=== PATIENT | male | born 1950 | race Caucasian/White ===

== ENCOUNTER 2017-08-21 09:26 | Day surgery (SDC) | payer MEDICARE, BC ==
[2017-08-20 16:31] LABS: HEMATOCRIT 48.9 % (42.0-54.0); HEMOGLOBIN 16.3 g/dL (13.5-17.5); MCH 29.7 pg (26.0-34.0); MCHC 33.3 g/dL (31.0-37.0); MCV 89.1 fL (80.0-100.0); MEAN PLATELET VOLUME 8.8 fL (7.4-10.4); RBC 5.49 10x6/uL (4.20-6.10); RDW 14.2 % (11.5-14.5); WBC 10.3 10x3/uL (4.8-10.8)
[~2017-08-21] VITALS: Ht 177.8 cm; Wt 119.5 kg
[2017-08-21] VITALS (9 sets, daily range): BP systolic 120–142; BP diastolic 69–88; Ht 177.8 cm; Wt 119.5 kg
--- NOTE | ~2017-08-21 | OP ---
PATIENT NAME: UNRULY LYNCH MEDICAL RECORD: [id number] :54 [facility]: SURGEON: OBDULIA KUHN MD DATE OF OPERATION: 08/21/2017 PREOPERATIVE DIAGNOSIS: Osteophyte formation and disk herniation at C4-C5 and C5-C6. SURGEON: Obdulia Kuhn MD PROCEDURE: Anterior cervical diskectomy and fusion at C4-C5 and C5-C6 with PEEK interbody cages at C4-C5 and C5-C6, separate anterior cervical plate and screws with colonial spacers and VIP anterior cervical plate from [facility] [employer]. DESCRIPTION OF TECHNIQUE: After induction of general endotracheal anesthesia, the patient was positioned supine on the operating table. Neck was prepped and draped in usual sterile fashion. Fluoroscopic x-ray and freer localized the C5 vertebral body. A transverse skin incision was carried out from the midline to the sternocleidomastoid muscle. The platysma was divided with Bovie cautery. Using blunt and sharp dissection with Metzenbaum scissors, I proceeded in the avascular plane medial to the carotid sheath. The longus colli muscles were elevated from bodies of C4, C5 and C6. A self-retaining retractor was placed deep to the longus colli muscles. Ducor distracting pins were placed in the bodies of C4, C5 and C6. Disk spaces were incised of C4-C5 and C5-C6. Disk material was removed with the pituitary rongeurs and curettes. Midas Roddy drill and microscope were used to remove osteophytes posteriorly. Cloward rongeurs were used to remove the posterior longitudinal ligament at each level posteriorly. The dura was decompressed well at C4-C5 and C5-C6 foramen as well as the central canal. The 8 mm PEEK interbody cages were placed in the disk space under distraction. Prior to this, I filled with Viaba bone stem cell allograft. A separate VIP anterior cervical plate and screws were used to span the C4-C5 and C5-C6 interspaces. Self-drilling screws were placed through the holes and plate. The locking cams tightened down with a torque screwdriver. Good position of the hardware was confirmed with fluoroscopic x-ray. Meticulous hemostasis was maintained throughout the wound. The wound was irrigated with copious amounts of Ancef irrigant solution. The platysma and subdermal layer closed with interrupted 3-0 Vicryl suture. The skin was reapproximated with Steri-Strips and benzoin. A sterile dressing was applied to the wound. The patient was awakened in good condition and taken to recovery. All counts were reported as correct. Estimated blood loss was minimal. TRANSINT:[id number] Voice Confirmation ID: [id number] DOCUMENT ID: [id number] OBDULIA KUHN MD at 1832 CC: [id number] DICTATION DATE: 09/08/17 1629 SALON PROFESSIONAL: 09/08/17 1713 [facility] 08/22/17 [id number] [place] [address]
[~2017-08-21 09:26] MED LIST: CELEXA20 MG PO; CYCLOBENZAPRINE5 MG PO; HYDROCO/APAP TAB 10-; MELOXICAM TAB 15M; OSTEO BI-FLEX1 EAC1 PO
[2017-08-22] VITALS (9 sets, daily range): BP systolic 105–132; BP diastolic 56–86
== END 2017-08-22 13:00 | disposition home or self-care (01) ==
LOC: D.OPS 09:26 → D.CVICU 09:26 → D.OPS 10:45 → D.PAN 10:45 → D.CVICU 17:55 → D.OPS 08-22 13:00
PROVIDERS: Anesthesiology
DX: M54.12 Radiculopathy, cervical region (principal); M53.80 Other specified dorsopathies, site unspecified; M77.9 Enthesopathy, unspecified; K21.9 Gastro-esophageal reflux disease without esophagitis; E66.9 Obesity, unspecified; Z01.812 Encounter for preprocedural laboratory examination